=== PATIENT | male | born 1940 | race Caucasian/White ===

== ENCOUNTER → 2016-12-04 | Outpatient (CLI) | payer BC ==
[2015-05-19 10:50] VITALS: BP 136/89
[~2016-12-04] MED LIST: AMOX1TAB61 PO; AMPI3VIA IJ; CHOL4POW11 PO; IOHEXOL 240 MG/ML 50ML VIAL. PO ONE; IOHEXOL 300 MG/ML 100ML VIAL. IV ONE; OXYC-244 PO; RAMI10CA PO; RAMI10CA28 PO; RANI150T6 PO; SERT100T8 PO
--- NOTE | 2016-12-04 12:22 | KCIC ---
PROCEDURE CT scan of the abdomen and pelvis without and with contrast 11/24/2016 HISTORY Right-sided abdominal/back pain. Lump in right back. TECHNIQUE Contiguous, 5 millimeter axial sections were obtained through the abdomen and pelvis without and with the use of intravenous contrast. Oral contrast was administered prior to imaging. 89 cc of Omnipaque 300 were administered intravenously during this examination. One or more of the following individualized dose reduction techniques were utilized for this study: 1. Automated exposure control. 2. Adjustment of the mA and/or kV according to patient size. 3. Use of iterative reconstruction technique. FINDINGS Comparison study is dated 05/18/2015. Images through the lung bases demonstrate minimal dependent subsegmental atelectasis bilaterally. There is mild cardiomegaly. The unenhanced images through the abdomen and pelvis demonstrate no renal or ureteral calculus. On the post-contrast images, the liver, spleen, pancreas, and adrenal glands are within normal limits. A 4 millimeter rounded low attenuation lesion is seen involving the lower pole of the right kidney. A 3.3 centimeter rounded low attenuation lesion is seen involving the lower pole of the left kidney. A 1 centimeter low attenuation lesion is seen involving mid pole of the left kidney, laterally. These likely represent cysts. Moderate atherosclerotic calcification of the abdominal aorta and its branches is seen. The abdominal aorta is ectatic measuring 3 centimeters in greatest AP dimensions in its infrarenal portion. The gallbladder is not visualized consistent with a cholecystectomy. No free fluid or free air is seen within the abdomen. There is no evidence of bowel obstruction. Images through the pelvis demonstrate the urinary bladder distended with urine. Multiple diverticula are seen involving the sigmoid colon. No inflammatory changes are seen in the adjacent fat. No free fluid is seen. Mild S-shaped curvature of the thoracolumbar spine is noted. Degenerative changes are seen involving lower thoracic and throughout the lumbar spine and both hips. A a complex fluid collection is seen involving the right posterior abdominal wall within the right upper quadrant of abdomen lateral to the paraspinal musculature involving the region of the inferior aspect of the right latissimus dorsi muscle extending posteriorly to involve the subcutaneous fat. This measures 7.8 x 5.7 x 3.0 centimeters in transverse, craniocaudal and AP dimensions. This corresponds to the patient's lump. Increased density is seen within the adjacent fat. The CT appearance of this area is nonspecific but could reflect a hematoma versus an abscess. Clinical correlation is recommended. This would be amenable to aspiration under ultrasound if clinically warranted. IMPRESSION 7.8 centimeter complex fluid collection is seen involving the posterior right abdominal wall as outlined above. It's CT appearance could represent a hematoma versus an abscess. Clinical correlation is recommended. Electronically signed by: Hilton Bolton MD (December 04, 2016 12:21:02)
== END | disposition home or self-care (01) ==
LOC: KCIC CT 10:23
PROVIDERS: ATTEND Family Medicine
DX: R10.9 Unspecified abdominal pain (principal); M54.9 Dorsalgia, unspecified
CPT/HCPCS: 74178; 82565; Q9966; Q9967

== ENCOUNTER 2016-12-11 07:06 | Outpatient (CLI) | payer BC ==
[~2016-12-11] VITALS: Ht 167.6 cm; Wt 72.6 kg
[~2016-12-11 07:06] MED LIST changes: -IOHEXOL 240 MG/ML 50ML VIAL. PO ONE; -IOHEXOL 300 MG/ML 100ML VIAL. IV ONE
[2016-12-11 07:29] LABS: BASO # 0.1 x10^3/uL (0.0-0.2); BASO % 1 % (0-3); EOS % 3 % (0-3); HEMATOCRIT 42.2 % (39.0-53.0); HEMOGLOBIN 14.2 g/dL (13.0-17.5); LYMPH # 0.9 x10^3/uL (1.0-4.8); LYMPH % 10 % (24-48); MEAN CORPUSCULAR HEMOGLOBIN 32 pg (25-35); MEAN CORPUSCULAR HGB CONC 34 g/dL (31-37); MEAN CORPUSCULAR VOLUME 94 fL (79-100); MONO % 7 % (0-9); NEUT % 79 % (31-73); PLATELET COUNT 199 x10^3/uL (140-400); RED BLOOD COUNT 4.52 x10^6/uL (4.30-5.70); RED CELL DISTRIBUTION WIDTH 13.3 % (11.5-14.5); WHITE BLOOD COUNT 9.1 x10^3/uL (4.0-11.0)
[2016-12-11 07:32] VITALS: BP 145/92
[2016-12-11 07:42] LABS: INR 1.1 (0.8-1.1); PROTHROMBIN TIME PATIENT 13.3 SEC (11.7-14.0)
[2016-12-11] MEDS ORDERED: LIDOCAINE 1% / SOD BICARB 8.4% 20 ML VIAL. IJ ONE ×2 (08:20→09:15)
[2016-12-11 08:55] VITALS: BP 159/99
[2016-12-11 09:05] VITALS: BP 165/101
--- NOTE | 2016-12-11 09:38 | PDOC1 ---
History and Physical Date of Procedure Date of Admission 12/11/[address] guided aspiration of right posterior abdominal wall complex fluid collection. Indication Indication 76 YO male with tender right posterior wall complex fluid collection, precipitated by a fall. Of note this collection is in a similar location to abdominal wall-intraabdominal proteus and enterococcus abscess in 2015. While this most likely represents post fall hematoma, needle aspiration for culture has been requested to exclude recurrent abscess. Past Medical History Past Medical History See Nursing Pre Procedure PMH Past Surgical History Past Surgical History See Nursing Pre Procedure PSH Current Medications Current Medications Current Medications Lidocaine/Sodium Bicarbonate (Buffered Lidocaine 1%) 20 ml STK-MED ONCE IJ ; Start 12/11/16 at 08:20; Stop 12/11/16 at 08:21; Status DC Lidocaine/Sodium Bicarbonate (Buffered Lidocaine 1%) 1 ml 1X ONCE IJ Last administered on 12/11/16t 09:10; Start 12/11/16 at 09:15; Stop 12/11/16 at 09:16 ; Status DC Active Scripts Active Reported Zantac (Ranitidine Hcl) 150 Mg Tablet 150 Mg PO BID Altace (Ramipril) 10 Mg Capsule 10 Mg PO DAILY Sertraline Hcl 100 Mg Tablet 100 Mg PO DAILY Allergies Allergies: Coded Allergies: Sulfa (Sulfonamide Antibiotics) (Verified Allergy, Intermediate, 04/17/15) sildenafil (Unverified Allergy, Intermediate, 04/17/15) tadalafil (Verified Allergy, Intermediate, 04/17/15) meperidine HCl (Verified Adverse Reaction, Intermediate, Nausea and Vomiting, 04/17/15) Physical Exam Vital Signs Vital Signs Date Time Temp Pulse Resp B/P (MAP) Pulse Ox O2 Delivery O2 Flow Rate FiO2 12/11/16 09:05 82 25 165/101 (122) 96 Nasal Cannula 2.0 12/11/16 07:32 97.8 97.8 Lungs: Clear to auscultation Heart: Regular rate Psych/Mental Status: Mental status NL Other Mildly tender right posterior abdominal wall fluid collection, without erythema. Diagnostic Data/Imaging Images [facility] CT imaging from 2014 and recent [facility] CT from 12/04/16 reviewed. The current right posterior abdominal wall complex fluid collection does lie in a similar location as the 2015 abscess, however, this collection has shown interval decrease in size since 12/04/16. Assessment Assessment 76 YO male with right posterior abdominal wall complex fluid collection, precipitated by a fall. This collection may well represent hematoma, with partial spontaneous resolution since 12/04/16 CT study. However, given previous (2014) Proteus/Enterococcus abdominal wall abscess in this same location, image guided needle aspiration for culture is considered reasonable. Problems: Plan Plan CT guided needle aspiration of right posterior abdominal wall complex fluid collection, with samples to micro for culture. NAVI OLGUIN MD December 11, 2016 09:38
--- NOTE | 2016-12-11 09:45 | PDOC ---
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 Probable post traumatic hematoma. However, the complex fluid collection lies in a similar location to a prior proteus/enterococcus abscess dx and tx in 2014. Image guided aspiration has been requested by PCP to exclude recurrent abscess. Post-Procedure Diagnosis Post-Procedure Diagnosis Same. Procedure Performed Procedure Performed CT guided needle aspiration of right posterior abdominal wall complex fluid collection. Type of Anesthesia Type of Anesthesia Local Estimated Blood Loss EBL: Trace Specimens Specimans 10 cc complex fluid, initially serosanguineous, then becoming bloody aspirated-- --sample to micro for Gram stain and culture. Condition of Patient Condition of Patient Stable. No apparent complication. Disposition Disposition Home from [facility], to f/u with Dr Yates. Full report to follow. NAVI OLGUIN MD December 11, 2016 09:45
--- NOTE | 2016-12-11 16:21 | RAD ---
CT-guided needle aspiration of right posterior abdominal wall complex fluid collection Indication: 76-year-old male with a mildly tender complex fluid collection within posterior right abdominal wall, precipitated by a fall. This complex fluid collection is thought most likely to represent abdominal wall hematoma. However, a complex right posterior abdominal wall fluid collection in this same location was found to represent a Proteus and enterococcus containing abscess in 2014. Therefore, image guided needle aspiration was requested by primary care physician to exclude recurrent abscess. Anesthesia: Local only PQRS Compliance Statement: One or more of the following individualized dose reduction techniques was/were utilized for this CT examination or procedure: 1. Automated exposure control. 2. Adjustment of mA and/or kV according to patient size. 3. Iterative reconstruction technique. Procedure: Informed consent was obtained from the patient. He was placed prone on the CT scanner. Preliminary noncontrast CT images confirmed the presence of a small, elliptical mildly hypodense complex fluid collection within right posterior abdominal wall. This fluid collection appears smaller than on the previous [facility] CT abdomen/pelvis study done 12/04/2016, suggesting partial spontaneous resolution. An overlying skin site suitable for CT-guided needle aspiration was selected and marked. That area was prepped and draped in the usual sterile fashion. No moderate sedation was utilized. Using aseptic technique, local anesthesia, and CT guidance, a 13-gauge biopsy guide needle was successfully advanced into the small complex fluid collection. A total of 10 cc complex fluid was aspirated. This fluid was initially serosanguineous, then gradually becoming bloody. A sample of the aspirated fluid was submitted to microbiology for culture and sensitivity. The needle was removed and a sterile dressing was applied. Recent tolerated the procedure well without apparent complication. Completion CT images revealed only a small amount of residual complex fluid. Impression: Uneventful CT-guided needle aspiration of right posterior abdominal wall complex fluid collection, as described.
== END 2016-12-11 10:12 | disposition home or self-care (01) ==
LOC: INTRAD 07:06
PROVIDERS: ATTEND Family Medicine
DX: R18.8 Other ascites (principal); I10 Essential (primary) hypertension; F17.200 Nicotine dependence, unspecified, uncomplicated; Z90.49 Acquired absence of other specified parts of digestive tract; Z72.0 Tobacco use; Z85.46 Personal history of malignant neoplasm of prostate; Z88.2 Allergy status to sulfonamides; Z88.8 Allergy status to other drugs, medicaments and biological substances
CPT/HCPCS: 10022; 36415; 77012; 85027; 85610; 87071; 87075; 87205

== ENCOUNTER 2017-05-13 07:05 | Outpatient (CLI) | payer BC ==
[~2017-05-13] VITALS: Ht 167.6 cm; Wt 72.6 kg
[~2017-05-13 07:05] MED LIST changes: -OXYC-244 PO; +OXYC-327 PO; -RAMI10CA28 PO; +RAMI10CA34 PO
[2017-05-13 07:28] LABS: BASO % 0 % (0-3); EOS % 2 % (0-3); HEMATOCRIT 40.9 % (39.0-53.0); HEMOGLOBIN 13.8 g/dL (13.0-17.5); LYMPH # 0.5 x10^3/uL (1.0-4.8); LYMPH % 5 % (24-48); MEAN CORPUSCULAR HEMOGLOBIN 32 pg (25-35); MEAN CORPUSCULAR HGB CONC 34 g/dL (31-37); MEAN CORPUSCULAR VOLUME 94 fL (79-100); MONO % 9 % (0-9); NEUT % 84 % (31-73); PLATELET COUNT 163 x10^3/uL (140-400); RED BLOOD COUNT 4.34 x10^6/uL (4.30-5.70); RED CELL DISTRIBUTION WIDTH 13.3 % (11.5-14.5); WHITE BLOOD COUNT 10.5 x10^3/uL (4.0-11.0)
[2017-05-13 07:36] LABS: INR 1.2 (0.8-1.1)
[2017-05-13] MEDS ORDERED: OMEG100021 PO (07:45)
[2017-05-13] MEDS ORDERED: MULT1TAB52 PO (07:45)
[2017-05-13] MEDS ORDERED: PLAN450T PO (07:45)
[2017-05-13 08:05] VITALS: BP 100/71
[2017-05-13] MEDS ORDERED: LIDOCAINE 1% / SOD BICARB 8.4% 20 ML VIAL. IJ ONE ×2 (08:23→08:30)
[2017-05-13 09:00] VITALS: BP 107/71
--- NOTE | 2017-05-13 15:30 | RAD ---
Ultrasound-guided drainage of right flank abscess 05/13/2017 Indication: Recurrent right flank abscess Discussion: The risks and benefits of the procedure were discussed the patient. Informed consent was obtained. Timeout procedure was performed. The right flank was prepped and draped using sterile barrier technique. Ultrasound was used to identify a fluid collection in the right flank. This is at the site of multiple prior abscesses. 1% lidocaine without epinephrine was administered for local anesthesia. Under ultrasound guidance a 5 Chinese sheath needle was advanced into the collection with spontaneous return of purulent material. A guidewire was advanced to the collection over which, following dilatation a 10 Chinese drainage catheter was advanced. Approximately 120 cc of purulent material was aspirated. The catheter was connected to bulb suction drainage. Catheter was secured in place and a sterile dressing was applied. Impression: Successful ultrasound-guided drainage of a right flank abscess as described. Aspirated material sent for Gram stain and culture.
== END 2017-05-13 09:45 | disposition home or self-care (01) ==
LOC: INTRAD 07:05
PROVIDERS: ATTEND Family Medicine
DX: L02.211 Cutaneous abscess of abdominal wall (principal); I10 Essential (primary) hypertension; F17.200 Nicotine dependence, unspecified, uncomplicated; Z90.49 Acquired absence of other specified parts of digestive tract; Z86.69 Personal history of other diseases of the nervous system and sense organs; Z79.01 Long term (current) use of anticoagulants; Z85.46 Personal history of malignant neoplasm of prostate; Z72.0 Tobacco use; Z88.2 Allergy status to sulfonamides; Z88.8 Allergy status to other drugs, medicaments and biological substances
CPT/HCPCS: 10030; 36415; 85025; 85610; 87102; 87205; A4215; C1729; C1892; C1894; 87071; 87075

== ENCOUNTER → 2017-11-05 | Outpatient (CLI) | payer BC ==
[2017-11-05 11:00] LABS: ISTAT CREATININE 0.7 mg/dL (0.7-1.3)
[2017-11-05] MEDS: IOHEXOL 240 MG/ML 50ML VIAL. PO (12:19)
[2017-11-05] MEDS: IOHEXOL 300 MG/ML 100ML VIAL. IV (12:19)
== END | disposition home or self-care (01) ==
LOC: KCIC CT 09:21
DX: L02.211 Cutaneous abscess of abdominal wall (principal); N28.1 Cyst of kidney, acquired; K57.30 Diverticulosis of large intestine without perforation or abscess without bleeding; K86.89 Other specified diseases of pancreas; I77.811 Abdominal aortic ectasia; I25.10 Atherosclerotic heart disease of native coronary artery without angina pectoris; Z90.49 Acquired absence of other specified parts of digestive tract
CPT/HCPCS: 74177; 82565; Q9966; Q9967

== ENCOUNTER 2017-11-08 09:52 | Outpatient (CLI) | payer BC ==
[2017-11-08 10:44] LABS: ADD MAN DIFF? NO
[2017-11-08 10:50] LABS: BASO % 0 % (0-3); EOS # 0.1 x10^3/uL (0.0-0.7); EOS % 1 % (0-3); HEMATOCRIT 34.2 % (39.0-53.0); HEMOGLOBIN 12.1 g/dL (13.0-17.5); LYMPH # 0.5 x10^3/uL (1.0-4.8); LYMPH % 5 % (24-48); MEAN CORPUSCULAR HEMOGLOBIN 33 pg (25-35); MEAN CORPUSCULAR HGB CONC 35 g/dL (31-37); MEAN CORPUSCULAR VOLUME 93 fL (79-100); MONO % 10 % (0-9); NEUT # 8.5 x10^3uL (1.8-7.7); NEUT % 84 % (31-73); PLATELET COUNT 167 x10^3/uL (140-400); RED BLOOD COUNT 3.68 x10^6/uL (4.30-5.70); RED CELL DISTRIBUTION WIDTH 13.2 % (11.5-14.5); WHITE BLOOD COUNT 10.1 x10^3/uL (4.0-11.0)
[2017-11-08] MEDS ORDERED: LIDOCAINE WITH 8.4% SOD BICARB 3 ML DISP.SYRIN. (11:04)
[2017-11-08 11:30] LABS: INR 1.4 (0.8-1.1); PARTIAL THROMBOPLASTIN TIME 35 SEC (24-38); PROTHROMBIN TIME PATIENT 16.6 SEC (11.7-14.0)
[2017-11-08] MEDS ORDERED: MIDAZOLAM HCL/PF 2 MG/2 ML VIAL. (11:46)
[2017-11-08] MEDS ORDERED: fentaNYL PF VIAL 100 MCG/2 ML VIAL (11:46)
[2017-11-08] MEDS: fentaNYL PF VIAL 100 MCG/2 ML VIAL IV (12:07)
[2017-11-08] MEDS: LIDOCAINE WITH 8.4% SOD BICARB 3 ML DISP.SYRIN. IJ (12:08)
== END 2017-11-08 12:45 | disposition home or self-care (01) ==
LOC: INTRAD 09:52
DX: L02.211 Cutaneous abscess of abdominal wall (principal)
CPT/HCPCS: 10030; 36415; 85025; 85610; 85730; 87102; 87205; C1729; C1769; C1892; C1894; J3010

== ENCOUNTER 2017-12-09 08:26 | Outpatient (CLI) | payer BC ==
[2017-12-09] MEDS ORDERED: IOHEXOL 240 MG/ML 50ML VIAL. (09:32)
== END 2017-12-09 10:22 | disposition home or self-care (01) ==
LOC: INTRAD 08:26
DX: L02.211 Cutaneous abscess of abdominal wall (principal); Z88.1 Allergy status to other antibiotic agents; Z88.8 Allergy status to other drugs, medicaments and biological substances; I10 Essential (primary) hypertension; Z90.49 Acquired absence of other specified parts of digestive tract; Z85.46 Personal history of malignant neoplasm of prostate; F17.200 Nicotine dependence, unspecified, uncomplicated; Z90.79 Acquired absence of other genital organ(s)
CPT/HCPCS: 49424; 76080

== ENCOUNTER 2017-12-16 18:58 | Emergency (ER) | payer BC | END 2017-12-16 21:00 | disposition home or self-care (01) | LOC: ER 18:58 | DX: Z48.03 Encounter for change or removal of drains (principal); I10 Essential (primary) hypertension; Z88.2 Allergy status to sulfonamides; Z88.1 Allergy status to other antibiotic agents; Z88.8 Allergy status to other drugs, medicaments and biological substances | CPT/HCPCS: 99283 ==

== ENCOUNTER 2021-01-31 18:01 | Emergency (ER) | payer BC ==
[~2021-01-31] VITALS: Ht 167.6 cm; Wt 72.2 kg
[~2021-01-31 18:01] MED LIST changes: +AMOX1TAB10 PO; +MULT-445 PO; +OMEG100021 PO; -OXYC-327 PO; +OXYC1TAB19 PO; +PLAN450T2 PO; -RAMI10CA PO; +RAMI10CA53 PO; +RANI-376 PO; -RANI150T6 PO; +SERT-268 PO; -SERT100T8 PO
[2021-01-31] MEDS ORDERED: IV NORMAL SALINE 1000ML BAG 1,000 ML IV ONE (18:45)
--- NOTE | 2021-01-31 18:47 | PHYS DOC ---
Past Medical History Past Medical History: Cancer, Hypertension, Other Past Surgical History: Appendectomy, Cholecystectomy, Other Additional Past Surgical Histo: prostatectomy Smoking Status: Current Every Day Smoker Alcohol Use: None Drug Use: None General Adult EDM: Chief Complaint: DIZZY/LIGHT HEADED HPI: HPI: 81-year-old male past medical history of tobacco use, hypertension and former prostate cancer status post resection, presents to the ED with , (patient consents to his/her/their knowledge and involvement in pts' medical care), complaints of " I think I got a little too dehydrated," stating he was outside for 45 minutes trying to assist in picking up his drunk neighbor who had fallen in a ditch after attempting to use a chainsaw. Patient was lifting a neighbor with his grandson. Was seen inside his home with his , starring at the wall and not acting appropriately. Symptoms lasted for approximately 15-30 minutes (per ) and the fire department came to "check him out." EMS offered IV and IVFs, pt declined and came to ed by personal vehicle. Patient reports no history of TIA, CVA or CAD. Pt is at his current baseline mental status includes prior to symptom onset "I just didn't feel good." Patient currently asymptomatic. Pt did not hit his head, no LOC. Patient not on any anticoagulants. Patient denies any alcohol or drug use today. Drank coffee today, little water. Is asking for water in the ED. Review of Systems: Review of Systems: Constitutional: Denies fever or chills or dizziness or lightheadedness Eyes: Denies change in visual acuity. [] HENT: Denies nasal congestion or sore throat. [] Respiratory: Denies cough or shortness of breath or hemoptysis Cardiovascular: Denies chest pain or edema GI: Denies abdominal pain, nausea, vomiting, : Denies dysuria or saddle anesthesia Musculoskeletal: Denies back pain or joint pain. [] Integument: Denies rash, skin lesion or blistering lesions Neurologic: Denies headache, neck pain, focal weakness or sensory changes. [] Endocrine: Denies polyuria or polydipsia. [] Psychiatric: Denies depression or anxiety. [] Heart Score: C/O Chest Pain: No Risk Factors: Risk Factors: DM, Current or recent (<one month) smoker, HTN, HLP, family history of CAD, obesity. Risk Scores: Score 0 - 3: 2.5% MACE over next 6 weeks - Discharge Home Score 4 - 6: 20.3% MACE over next 6 weeks - Admit for Clinical Observation Score 7 - 10: 72.7% MACE over next 6 weeks - Early Invasive Strategies Allergies: Allergies: Allergies Coded Allergies Type Severity Reaction Last Updated Verified Sulfa (Sulfonamide Antibiotics) Allergy Severe SWELLING 01/31/21 Yes sildenafil Allergy Intermediate 01/31/21 Yes tadalafil Allergy Intermediate 01/31/21 Yes meperidine HCl Adverse Reaction Intermediate Nausea and Vomiting 05/13/17 Yes Physical Exam: PE: Constitutional: Well developed, well nourished, no acute distress, non-toxic appearance. HENT: Normocephalic, atraumatic, no signs of head trauma, very dry/cracked mu cous membranes Eyes: EOMI, conjunctiva normal, no discharge. Neck: Normal range of motion, supple, no midline neck pain Cardiovascular: S1/2 present, regular rhythm Lungs & Thorax: Speaking in full sentences, bilateral equal chest rise, no tachypnea or increased work of breathing Abdomen: soft, no tenderness, Skin: Warm, dry, richards UEs Back: No midline step-offs or tenderness, no CVA tenderness. [] Extremities: No tenderness, no cyanosis, no lower extremity edema Neurologic: Alert and oriented X 3, normal motor function, normal sensory function, no focal deficits noted. [] Psychologic: Affect normal, judgement normal, mood normal. [] Current Patient Data: Vital Signs: Vital Signs Date Time Temp Pulse Resp B/P (MAP) Pulse Ox O2 Delivery O2 Flow Rate FiO2 01/31/21 18:27 98.0 82 20 123/65 (88) 96 Room Air 98.0 EKG: EKG: Sinus rhythm 87 bpm, right axis deviation, PVCs, QRS 124, QTc 498, no ST elevations or ST depressions Radiology/Procedures: Radiology/Procedures: IMAGING REPORT Signed PATIENT: CYNDIE COLE ACCOUNT: [id number] : 1940 LOCATION: ER AGE: 81 SEX: M EXAM STATUS: REG ER ORD. PHYSICIAN: LAURIE REYNA DO REASON: confusion PROCEDURE: PORTABLE CHEST 1V EXAMINATION: Chest radiograph. VIEWS: Single view COMPARISON: None INDICATION:81 years, Male, confusion. FINDINGS: Normal cardiomediastinal silhouette. No focal consolidation. No pleural effusion or pneumothorax. No acute osseous process. IMPRESSION: No acute cardiopulmonary process. Electronically signed by: Thalia Morgan MD (01/31/2021 7:15 PM) [facility] DICTATED and SIGNED BY: THALIA MORGAN MD DATE: 01/31/21 [id number] 0 Course & Med Decision Making: Course & Med Decision Making Pertinent Labs and Imaging studies reviewed. (See chart for details) Concern for episode of confusion, cannot differentiate delirium versus near syncope, in the setting dehydration via physical exam. Patient with no asso ciated chest pain, shortness of breath, neurologic deficits or head injury.Pt well appearing and when discussing admission for cardiac evaluation states "hell no, I feel great." Reports no underlying cardiac history. Nonspecific BNP, no cardiomegaly on chest x-ray. Is tolerating oral intake. Will discharge home with strict ED return precautions were given for confusion, head injury, neurologic deficits, chest pain or shortness of breath. Encouraged urgent outpatient follow-up with PMD and specialty care as needed. Life-threatening processes were considered but are low suspicion at this time, given history, physical exam and ED workup. Pt was educated on all prescription medications and adverse effects. All patient's questions were answered and pt was stable at time of discharge. Life/limb-threatening differential includes but is not limited to stroke, acute coronary syndrome, toxidrome, syncope differential including cardiac arrhythmia/PE/aortic aneurysm or dissection/ACS, infection, heat stroke or alisha ctrolyte disorder. I have spoken with the patient and/or caregivers. I explained the patient's condition, diagnoses and treatment plan based on the information available to me at this time. I have answered the patient and/or caregiver's questions and ad dressed any concerns. The patient and/or caregivers have a good understanding of patient's diagnosis, condition and treatment plan as can be expected at this point. Vital signs have been stable. Patient's condition is stable and appropriate for discharge from the emergency department. Patient will pursue further outpatient evaluation with primary care physician or other designated or consulting physician as outlined in the discharge instructions. The patient and/or caregivers are agreeable to this plan of care and follow-up instructions have been explained in detail. The patient and/or caregivers have received these instructions in written form and have expressed an understanding of the discharge instructions. The patient and/or caregivers are aware that any significant change of condition or worsening of symptoms should prompt immediate return to this or the closest emergency department or call to 911. Josesito Disclaimer: Josesito Disclaimer: This electronic medical record was generated, in whole or in part, using a voice recognition dictation system. Departure Departure Impression: Primary Impression: Confusion Additional Impression: Dehydration Disposition: 01 HOME / SELF CARE / HOMELESS Condition: STABLE Referrals: REYNALDO SANCHEZ MD (PCP) in 1 -2 days for re-evaluation Patient Instructions: Confusion, Dehydration, Elderly Additional Instructions: FOLLOW UP WITH NEUROLOGY: FOR DEFINITIVE MANAGEMENT of confusion/delirium [facility] Neurology [address] [facility], [facility] [address] [place] [address] FOLLOW UP WITH CARDIOLOGY: FOR DEFINITIVE MANAGEMENT of cardiac etiologies of near-syncope [facility] Cardiology [address] [facility] [address] [place] [address] EMERGENCY DEPARTMENT GENERAL DISCHARGE INSTRUCTIONS Thank you for coming to [facility] Emergency Department (ED) today and trusting us with you care. We trust that you had a positive experience in our Emergency Department. If you wish to speak to the department management, you may call the Director at [phone]. YOUR FOLLOW UP INSTRUCTIONS ARE FOLLOWS: 1. Do you have a private Doctor? If you do not have a private doctor, please ask for a resource list of physicians or clinics that may be able to assist you with follow up care. 2. The Emergency Physicain has interpreted your x-rays. The X-Ray specialist will also review them. If there is a change in the findings, you will be notified in 48 hours when at all possible. 3. A lab test or culture has been done, your results will be reviewed and you will be notified if you need a change in treatment. ADDITIONAL INSTRUCTIONS AND INFORMATION: 1. Your care today has been supervised by a physician who is specially trained in emergency care. Many problems require more than one evaluation for a complete diagnosis and treatment. We recommend that you schedule your follow up appointment as recommended to ensure complete treatment of you illness or injury. If you are unable to obtain follow up care and continue to have a problem, or if your condition worsens, we recommend that you return to the ED. 2. We are not able to safely determine your condition over the phone nor are we able to give sound medical advice over the phone. For these safety reasons, if you call for medical advice we will ask you to come to the ED for further evaluation. 3. If you have any questions regarding these discharge instructions please call the ED at [phone]. SAFETY INFORMATION: In the interest of safety, wellness, and injury prevention; we encourage you to wear your sealbelt, if you smoke; quite smoking, and we encourage family to use a pro tective helmet for bicycling and other sporting events that present an increased risk for head injury. IF YOUR SYMPTOMS WORSEN OR NEW SYMPTOMS DEVELOP, OR YOU HAVE CONCERNS ABOUT YOUR CONDITION; OR IF YOUR CONDITION WORSENS WHILE YOU ARE WAITING FOR YOUR FOLLOW UP APPOINTMENT; EITHER CONTACT YOUR PRIMARY CARE DOCTOR, THE PHYSICIAN WHOSE NAME AND NUMBER YOU WERE GIVEN, OR RETURN TO THE ED IMMEDIATELY. LAURIE REYNA DO Jan 31, 2021 18:47
--- NOTE | 2021-01-31 18:48 | EKG ---
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
[2021-01-31 18:52] LABS: BASO % 0 % (0-3); EOS # 0.2 x10^3/uL (0.0-0.7); EOS % 2 % (0-3); HEMATOCRIT 44.5 % (39.0-53.0); HEMOGLOBIN 15.4 g/dL (13.0-17.5); LYMPH # 0.7 x10^3/uL (1.0-4.8); LYMPH % 8 % (24-48); MEAN CORPUSCULAR HEMOGLOBIN 33 pg (25-35); MEAN CORPUSCULAR HGB CONC 35 g/dL (31-37); MEAN CORPUSCULAR VOLUME 96 fL (79-100); MONO # 0.5 x10^3/uL (0.0-1.1); MONO % 5 % (0-9); NEUT % 86 % (31-73); PLATELET COUNT 136 x10^3/uL (140-400); RED BLOOD COUNT 4.65 x10^6/uL (4.30-5.70); RED CELL DISTRIBUTION WIDTH 13.5 % (11.5-14.5); WHITE BLOOD COUNT 9.3 x10^3/uL (4.0-11.0)
[2021-01-31 19:04] LABS: CALCIUM 9.4 mg/dL (8.5-10.1); CREATININE 1.3 mg/dL (0.7-1.3); GFR 53.1; POTASSIUM 4.2 mmol/L (3.5-5.1)
[2021-01-31 19:09] LABS: ALBUMIN 3.8 g/dL (3.4-5.0); ALBUMIN/GLOBULIN RATIO 1.2 (1.0-1.7); MAGNESIUM 2.3 mg/dL (1.8-2.4); TOTAL BILIRUBIN 0.4 mg/dL (0.2-1.0); TOTAL PROTEIN 7.1 g/dL (6.4-8.2)
--- NOTE | 2021-01-31 19:17 | RAD ---
EXAMINATION: Chest radiograph. VIEWS: Single view COMPARISON: None INDICATION:81 years, Male, confusion. FINDINGS: Normal cardiomediastinal silhouette. No focal consolidation. No pleural effusion or pneumothorax. No acute osseous process. IMPRESSION: No acute cardiopulmonary process. Electronically signed by: Aruna Morgan MD (01/31/2021 7:15 PM) [facility]
[2021-01-31 19:45] LABS: % BANDS 2 % (0-9); % EOS 1 % (0-5); % LYMPHS 5 % (24-48); % MONOS 4 % (0-10); % SEGS 88 % (35-66); PLT ESTIMATE ADEQUATE (ADEQUATE)
[2021-01-31 20:14] LABS: BILIRUBIN,URINE NEGATIVE (NEG); CLARITY,URINE CLEAR; COLOR,URINE YELLOW; NITRITE,URINE NEGATIVE (NEG); PH,URINE 7.5 (<5.0-8.0); PROTEIN,URINE NEGATIVE (NEG-TRACE)
[2021-01-31 20:22] LABS: BACTERIA,URINE 0 /HPF (0-FEW); HYALINE CASTS, URINE FEW /HPF; RBC,URINE OCC /HPF (0-2); WBC,URINE 0 /HPF (0-4)
[2021-01-31 20:26] LABS: BARBITURATES NEG (NEG); BENZODIAZEPINES NEG (NEG); CANNABINOIDS NEG (NEG); COCAINE NEG (NEG); METHADONE NEG (NEG); OPIATES NEG (NEG); PHENCYCLIDINE NEG (NEG)
[2021-01-31 20:28] LABS: AMPHETAMINE/METHAMPHETAMINE NEG (NEG)
[2021-01-31 23:20] VITALS: BP 139/77
== END 2021-01-31 23:25 | disposition home or self-care (01) ==
LOC: ER 18:01
DX: E86.0 Dehydration (principal); R41.0 Disorientation, unspecified; I10 Essential (primary) hypertension; F17.200 Nicotine dependence, unspecified, uncomplicated; Z90.89 Acquired absence of other organs; Z90.49 Acquired absence of other specified parts of digestive tract
CPT/HCPCS: 36415; 71045; 80053; 80307; 81001; 83735; 83880; 84484; 85007; 85025; 93005; 96360; 99285; J7030

== ENCOUNTER 2021-11-14 09:03 | Day surgery (SDC) | payer BC ==
[~2021-11-14] VITALS: Ht 167.6 cm; Wt 71.3 kg
[~2021-11-14 09:03] MED LIST changes: +ASPI325T8 PO; +GARL100T PO
[2021-11-14 10:01] VITALS: BP 148/72
[2021-11-14] MEDS ORDERED: IV RINGERS,LACTATED 1000ML 1,000 ML IV SCH ×2 (10:15→14:00)
[2021-11-14] MEDS ORDERED: BUPIVACAINE MPF 0.25% 30 ML VIAL. ONE ×2 (10:19→12:58)
--- NOTE | 2021-11-14 10:26 | PDOC1 ---
History and Physical Date of Service: DOS: DATE: 11/14/21 TIME: 10:24 Chief Complaint: Chief Complain: Left foot pain History of Present Illness: HPI: 81-year-old male with past medical history of hypertension, tobacco misuse, prostate cancer, depression, basal cell carcinoma who comes in for surgery with podiatry. Patient apparently has a left fifth metatarsal bone fracture after injuring his foot when coming out of the recliner. Patient is currently in dressings and has no pain at this time. Patient does have a history of smoking but denies being on any home oxygen or having dyspnea at rest at this time. Saturating well on room air. Currently denies any fevers, chest pain, abdominal pain, dysuria, palpitations or lightheadedness. Past Medical/Surgical History: PMH/PSH: Past medical history of hypertension, global transient amnesia, bilateral carotid stenosis, prostate cancer, basal cell carcinoma Allergies: Allergies: Coded Allergies: Sulfa (Sulfonamide Antibiotics) (Verified Allergy, Severe, SWELLING, 01/31/21) morphine (Verified Allergy, Intermediate, Unknown, 11/13/21) sildenafil (Verified Allergy, Intermediate, 01/31/21) tadalafil (Verified Allergy, Intermediate, 01/31/21) meperidine HCl (Verified Adverse Reaction, Intermediate, Nausea and Vomiting, 05/13/17) Family History: Family History: Reviewed with no relative findings in the chart Social History: Social History: 1 pack/day smoker Current Medications: Current Medications Current Medications Cefazolin Sodium/ Dextrose 50 ml @ 100 mls/hr 1X PREOP PRN IV PRIOR TO PROCEDURE; Start 11/14/21 at 09:00; Stop 11/15/21 at 08:59 Ringer's Solution 1,000 ml @ 75 mls/hr [id number] IV ; Start 11/14/21 at 10:15 Bupivacaine HCl (Sensorcaine Mpf 0.25%) 30 ml STK-MED ONCE .ROUTE ; Start 11/14/21 at 10:19; Stop 11/14/21 at 10:20; Status DC Active Scripts Active Reported Garlic 100 Mg Tablet 100 Mg PO DAILY Aspirin 325 Mg Tablet 1 Tab PO DAILY Fish Oil 1,000 mg Softgel ([place]-3/Dha/Epa/Fish Oil) 1,000 Mg Capsule 1,000 Mg PO DAILY Multivitamins (Multivitamin) 1 Each Tablet 1 Tab PO DAILY Altace (Ramipril) 10 Mg Capsule 10 Mg PO DAILY Sertraline Hcl 100 Mg Tablet 100 Mg PO DAILY ROS: Review of Systems Review of System REVIEW OF SYSTEMS: GENERAL: Denies weakness SKIN: No bruising, hair changes or rashes. EYES: No blurred, double or loss of vision. NOSE AND THROAT: No history of nosebleeds, hoarseness or sore throat. HEART: No history of palpitations, chest pain or shortness of breath on exertion. LUNGS: Denies cough, hemoptysis, wheezing or shortness of breath. GASTROINTESTINAL: Denies changes in appetite, nausea, vomiting, diarrhea or constipation. GENITOURINARY: No history of frequency, urgency, hesitancy or nocturia. NEUROLOGIC: Denies history of numbness, tingling, or tremor. PSYCHIATRIC: No history of panic, anxiety or depression. ENDOCRINE: No history of heat or cold intolerance, polyuria or polydipsia. EXTREMITIES: Denies joint pain, pain on walking or stiffness. Physical Exam: Vital Signs: Vital Signs Date Time Temp Pulse Resp B/P (MAP) Pulse Ox O2 Delivery O2 Flow Rate FiO2 11/14/21 10:06 97.7 76 18 148/72 96 Room Air 97.7 Physcial Exam: General: Well developed, well nourished, no acute distress, well appearing HEENT: Pupils equally round and reactive to light, EOMI, no discharge, normal conjunctiva Neck: Supple, no nuchal rigidity, no JVD, trachea midline, no tenderness Cardiac: RRR, no murmurs, no gallops, no rubs Chest/Lungs: CTAB, no wheeze, no rhonchi, no crackles Abdomen: soft, non-distended, no guarding, no peritoneal signs, non-tender Back: No tenderness Extremities: Left foot in dressings which are clear dry and intact. No pedal edema. Neuro: Alert and oriented x 4, no focal deficits, normal speech Labs: Labs: No recent labs to review Images: Images PROCEDURE: FOOT LEFT 3V XR FOOT_LEFT 3 VIEWS 11/13/2021 3:45 PM INDICATION: Left foot pain COMPARISON: None available. TECHNIQUE: 3 views of the left foot are provided. FINDINGS/ IMPRESSION: There is an obliquely oriented fracture of the midshaft of the fifth metatarsal with approximately 3 mm displacement. Lateral soft tissue swelling is present. No intra-articular extension is identified.. Joint spaces are maintained. Bone mineralization is within normal limits. There is no soft tissue gas or osseous erosion. No radiopaque foreign body. Plantar calcaneal enthesophyte. Pes planus. Assessment/Plan Assessment/Plan Closed displaced fracture of the Left 5th metatarsal. Tobacco use HTN < 0.1 % PATTERSON risk for non vascular extremity surgery Plan for discharge from hospital after surgery Justifications for Admission Other Justification SHAYAN MUNGUIA MD Nov 14, 2021 10:26
[2021-11-14] MEDS ORDERED: PROPOFOL 50 ML IV ONE (11:06)
[2021-11-14] MEDS ORDERED: ONDANSETRON PF 4 MG/2 ML VIAL. ONE (11:06)
[2021-11-14] MEDS ORDERED: LIDOCAINE 2% PF 5 ML VIAL. ONE (11:06)
[2021-11-14] MEDS ORDERED: fentaNYL PF VIAL 100 MCG/2 ML VIAL ONE ×2 (11:07→12:36)
[2021-11-14] MEDS ORDERED: PROPOFOL 10 MG/ML (20ML) VIAL. IV ONE ×2 (11:10→12:07)
--- NOTE | 2021-11-14 11:35 | PDOC4 ---
OPERATIVE NOTE Date: Date: Nov 14, 2021 Pre-Op Diagnosis: Left metatarsal shaft fracture, displaced, extra-articular Post-Op Diagnosis: Same as above Procedure Performed: Left fifth metatarsal open reduction and internal fixation Surgeon: Shelly Greene DPM Anesthesia Type: General Blood Loss: 5 cc Specimans Obtained: None Findings: Soft bone throughout, oblique fracture at the distal fifth metatarsal shaft, extra-articular. After open reduction internal fixation, stress test was insignificant for fracture instability or displacement Complications: None Operative Note: Under mild sedation, patient was brought into the operating room and placed on an operating table in a supine position. Following a formal timeout, patient's identity, procedure and procedure sites were confirmed. Following IV prophylactic antibiotics, general anesthesia, a well-padded high ankle tourniquet was placed to the left lower extremity. Following alcohol skin prep, 9 cc of 0.25% Marcaine plain was infiltrated into the distal fifth ray. Then the left lower extremity was then scrubbed, prepped and draped using standard aseptic techniques. An Esmarch was used to exsanguinate the left foot and ankle and tourniquet was inflated to 250 millimercury. The attention was directed to the left foot where a linear incision was made into the dorsal lateral aspect of the fifth metatarsal shaft. The incision was carried deep with care to protect and retract all neurovascular bundles. Periosteal elevator was used to elevate the soft tissue from the fracture site to expose the fifth metatarsal shaft. The fracture was noted oblique in nature with the distal fragment proximally impacted and internally rotated. Overall, the bone was soft throughout. The fracture site was carefully debrided free from hematoma, invaginated soft tissue/periosteum. Then the surgical site was irrigated with saline solution. The fracture was reduced with sharp to sharp reduction clamp and stabilized with a 0.054 inch K wire. Intraoperative x-ray remarked adequate fracture reduction with rastafari of length and cortical alignment. Then a mini frag plate was used to stabilize the fracture at the lateral fifth metatarsal shaft. A combination of 2.7mm locking and nonlocking screws were used to affix the lateral buttress plate across the fracture site. Intraoperative stress test was insignificant for fracture instability or displacement. Passive fifth MTP range of motion was insignificant for hardware impingement. Then the surgical site was irrigated with copious saline solution. The surgical site was then closed in layers with 3-0 Vicryl, 4 Monocryl and 4-0 nylon. Then the surgical sites were anesthetized with 9 cc of 0.25% Marcaine plain. The sites were dressed with Xeroform, 4 x 4, ABD. The left lower extremity was then immobilized in a modified Bullock compression splint with ankle held near 90 degrees. Then the tourniquet was deflated and adequate digital perfusion was noted. Patient tolerated the procedure and anesthesia well and then transferred to PACU for continuous recovery. Pending left foot 3 view x-ray. Dispo: Pending serum vitamin D3 and calcium test. PT for walker training, nonweightbearing to the surgical foot. SHELLY GREENE Jennifer Nov 14, 2021 11:35
[2021-11-14] MEDS ORDERED: oxyCODONE/APAP 5/325 1 TAB TABLET PO ONE (11:45)
[2021-11-14] MEDS ORDERED: ACETAMINOPHEN 325 MG TABLET. PO ONE (11:45)
[2021-11-14] MEDS ORDERED: fentaNYL PF VIAL 100 MCG/2 ML VIAL IVP PRN ×2 (14:00)
[2021-11-14] MEDS ORDERED: PROCHLORPERAZINE 10 MG/2 ML VIAL. IVP PRN (14:00)
[2021-11-14] MEDS ORDERED: HYDR-2761 PO (14:00)
[2021-11-14] MEDS ORDERED: HYDROmorphone 2 MG/ML INJ. IVP PRN (14:00)
[2021-11-14] MEDS ORDERED: CHOL5000 PO (14:01)
[2021-11-14] MEDS ORDERED: GABA-585 PO (14:01)
[2021-11-14] MEDS ORDERED: ACET500T68 PO (14:02)
[2021-11-14] MEDS ORDERED: IBUP-1007 PO (14:02)
[2021-11-14 16:10] VITALS: BP 110/58
--- NOTE | 2021-11-17 08:47 | RAD ---
EXAM: XR FOOT_LEFT 3 VIEWS 11/14/2021 2:08 PM CLINICAL INDICATION: Postop COMPARISON: Left foot radiograph 11/13/2021 TECHNIQUE: AP, oblique and lateral views of the left foot FINDINGS: An overlying cast obscured detail. There has been interval ORIF of the little toe metatars al fracture with a new plate and screw fixation device. Hardware appears intact. The fracture is impr mercedes in alignment. IMPRESSION: Interval ORIF of the little toe metatarsal fracture. Electronically signed by: Lisa Lincoln MD (11/17/2021 8:45 AM) [id number]
== END 2021-11-14 16:20 | disposition home or self-care (01) ==
LOC: SURG 09:03
PROVIDERS: ATTEND Podiatrist
DX: S92.352A Displaced fracture of fifth metatarsal bone, left foot, initial encounter for closed fracture (principal); I10 Essential (primary) hypertension; F32.9 Major depressive disorder, single episode, unspecified; F17.210 Nicotine dependence, cigarettes, uncomplicated; Z85.828 Personal history of other malignant neoplasm of skin; Z90.49 Acquired absence of other specified parts of digestive tract; Z98.890 Other specified postprocedural states; Z79.82 Long term (current) use of aspirin; Z79.899 Other long term (current) drug therapy; Z88.2 Allergy status to sulfonamides; Z88.8 Allergy status to other drugs, medicaments and biological substances; Z88.6 Allergy status to analgesic agent; X58.XXXA Exposure to other specified factors, initial encounter; Y93.89 Activity, other specified; Y92.89 Other specified places as the place of occurrence of the external cause; Y99.8 Other external cause status
CPT/HCPCS: 28485; 36415; 73630; 82306; 82310; 97116; 97161; A4209; A4930; A6223; A6253; A6402; A6449; A6450; C1713; J0690; J2405; J2704; J3010; J3490; A4657